=== PATIENT | male | born 1960 | race Caucasian/White ===

== ENCOUNTER 2018-02-09 08:15 | Inpatient (IN) | payer OTHER ==
[~2018-02-09] VITALS: Ht 172.7 cm; Wt 99.8 kg
[2018-02-18] MEDS ORDERED: PERCOCET 5-3251 EACH PO (18:42)
[2018-02-18] MEDS ORDERED: XARELTO1 EACH PO (18:42)
[2018-02-18] MEDS ORDERED: DUI500 PO (18:42)
== END 2018-02-18 20:55 | DRG 470 ==
LOC: SURG 02-16 06:03 → O/R 02-16 06:03 → SURH 02-16 07:00 → SURG 02-16 11:12
PROVIDERS: Orthopaedic Surgery
PROC: 0MNP0ZZ Release Left Knee Bursa and Ligament, Open Approach (ICD-10-PCS; 2018-02-16)
PROC: 0SRD0J9 Replacement of Left Knee Joint with Synthetic Substitute, Cemented, Open Approach (ICD-10-PCS; principal; 2018-02-16 07:00)
DX: M17.12 Unilateral primary osteoarthritis, left knee (principal); D62 Acute posthemorrhagic anemia; I10 Essential (primary) hypertension; G47.33 Obstructive sleep apnea (adult) (pediatric); R73.01 Impaired fasting glucose